=== PATIENT | female | born 1990 | race Caucasian/White ===

== ENCOUNTER → 2021-04-23 16:22 | Outpatient (BNVA) | payer MEDICAID, SELFPAY | PROVIDERS: Visit Provider Registered Nurse Neonatal Intensive Care | DX: Z20.822 Contact with and (suspected) exposure to COVID-19 (principal) | CPT/HCPCS: 87635 ==

== ENCOUNTER → 2023-10-03 13:35 | Outpatient (BNVA) | payer BC, MEDICAID, SELFPAY | PROVIDERS: Visit Provider Nurse Practitioner | DX: J02.9 Acute pharyngitis, unspecified (principal) | CPT/HCPCS: 87880 ==

== ENCOUNTER 2025-04-13 17:53 | Emergency (ER) | payer BC, MEDICAID, SELFPAY ==
[2025-04-13 17:58] VITALS: BP 141/98; PULSE 76; RESP 14; TEMP 36.5; O2SAT 100
--- OUTSIDE RECORDS SUMMARY | 2025-04-13 18:01 | XMS_ITS | Patient Health Record ---
Author Organization [facility] Address [address] [place] [address] Care Team Providers Care [facility] Coder Name Role Phone Elmer Forman MD Primary Care Provider Grey Mejia Unavailable [phone] Allergies No Known Allergies Reason For Referral No Information Medications Medication SIG (Take, Route, Frequency, Duration) Notes Start Date End Date Status Advair Diskus 100-50 MCG/DOSE 1 puff Inhalation two times daily Active Linzess 145 MCG 1 Capsule Oral every other day 12/06/2012 Active SEROquel 300 MG Oral at bedtime Active LaMICtal 200 MG 1 Oral daily A ctive Singulair 10 MG 1 (one) Oral Daily 07/01/2006 Active Flonase 50 MCG/DOSE 2 sprays Nasal each nostril daily *please review for potential _update for e-prescription and drug interaction check* Active Medications Reconciled *please review for potential _update for e-prescription and drug interaction check* Active Loratadine 10 MG Oral daily Ac tive Levothyroxine Sodium 50 MCG 1 Oral daily Active Immunizations Vaccine Route Administration Date Status Comme nts Influenza, seasonal, injectable (split), for 3 yrs and up OTH Other/Miscellaneous 04/19/2005 Administered Influenza, seasonal, injectable (split), for 3 yrs and up OTH Other/Miscellaneous 04/26/2006 Administered Influenza, seasonal, injectable (split), for 3 yrs and up OTH Other/Miscellaneous 04/05/2008 Pending Problems Problem Type SNOMED Code ICD Code Onset Dates Problem Status W/U Status Risk Notes Problem Allergic rhinitis caused by pollen (disorder) (14221433) Allergic rhinitis due to pollen (J30.1) Inactive confirmed Problem Chronic rhinitis (62347757) Chronic rhinitis (J31.0) Inactive confirmed Problem Chronic ethmoidal sinusitis (10103402) Chronic ethmoidal sinusitis (J32.2) Inactive confirmed Problem Cough (93621884) Cough (R05) Inactive confirmed Comment:Order faxed for [facility] drive thru testing for COVID-19. Will notify patient of results as they become available. Discussed with patient the importance of self quarantine at home until notified of results. Push fluids and rest. Over the counter treatment options and suggestions for symptom reduction provided. Should f/u if test is negative but symptoms do not improve/worsen . Discussed s/s of worsening condition and need for follow up, including emergency care if acute worsening should occur. Recommend patient call ahead when possible to notify services that he/she has been tested for COVID-19. Pt indicates understanding. , Problem Syncope and collapse (713220106) Syncope and collapse (R55) Inactive confirmed Problem Contusion of left forearm (3276199435300404 7) Contusion of left forearm, initial encounter (S50.12XA) Inactive confirmed Problem Counseling (902464058) ENCOUNTER FOR EDUCATION (Z71.9) Inactive confirmed Problem Shoulder joint pain (094331369) PAIN IN JOINT OF LEFT SHOULDER (M25.512) Inactive confirmed Problem Optic neuritis (42007262) OPTIC NEURITIS, RIGHT (H46.9) Inactive confirmed Comment:histor y of, Problem Body mass index 20-24 - normal (775444412) BODY MASS INDEX (BMI) OF 20.0-20.9 IN ADULT (Z68.20) Inactive confirmed Problem Abdominal pain (34767688) ABDOMINAL PAIN (R10.9) Inactive confirmed Comment:improv ed if moves her bowels, Problem Essential tremor (433435012) ESSENTIAL AND OTHER SPECIFIED FORMS OF TREMOR (G25.0) Inactive confirmed Problem 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, 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) Inactive confirmed Problem Deficiency anemias (726205480) ANEMIA, DEFICIENCY (D53.9) Inactive confirmed Comment:she is reporting heavy periods and has had labs showing mild iron deficiency she has had EGD/Colonoscop y, Problem Acute pharyngitis (898980132) PHARYNGITIS, ACUTE (J02.9) Inactive confirmed Problem STOMATITIS AND MUCOSITIS (K12.1) Inactive confirmed Problem Tenderness of right upper quadrant of abdomen (736582598) ABDOMINAL TENDERNESS, RUQ (RIGHT UPPER QUADRANT) (R10.811) Inactive confirmed Problem Syncope and collapse (495704684) SYNCOPE, UNSPECIFIED SYNCOPE TYPE (R55) Inactive confirmed Problem Gastroesophageal reflux disease (000361112) GERD (GASTROESOPHAGEA L REFLUX DISEASE) (K21.9) Inactive confirmed Comment:manuel Hurtado; handout provided to the patient,Story: diet and lifestyle modifications at this time, Problem Functional bowel disease (15543575) FUNCTIONAL BOWEL DISEASE (K58.9) Inactive confirmed Description: IR RITABLE BOWEL SYNDROME Problem ADHD - Attention deficit disorder with hyperactivity (628458939) ATTENTION DEFICIT DISORDER WITH HYPERACTIVITY (F90.9) Inactive confirmed Problem Asthma without status asthmaticus (24293948) ASTHMA WITHOUT STATUS ASTHMATICUS (J45.909) Inactive confirmed Problem Traumatic rotator cuff tear (309313914) TRAUMATIC ROTATOR CUFF TEAR (S46.019A) Inactive confirmed Problem Hemorrhage of rectum and anus (600938939) WV (BLEEDING PER RECTUM) (569.3) (569.3) Inactive confirmed Comment:does have external hemorrhoids on exam; large; however concern is the clotting seen will perform colonoscopy as above, Problem FOREARM DEFORMITY, LEFT (M21.932) Inactive confirmed Comment:Acute with pain, Problem Hemorrhoid (01436264) HEMORRHOID (K64.9) Inactive confirmed Description:HE MORRHOIDS Problem Partial seizure (98410144) PARTIAL SEIZURE DISORDER (G40.109) Inactive confirmed Problem Candidiasis of the esophagus (29840022) THRUSH OF MOUTH AND ESOPHAGUS (112.84) (112.84) Inactive confirmed Problem Surveillance of oral contraception done (situation) (277111634374529) ENCOUNTER FOR SURVEILLANCE OF CONTRACEPTIVE DRUG (Z30.40) Inactive confirmed Problem Bicipital tenosynovitis (43999496) BICEPS TENDONITIS (M75.20) Inactive confirmed Problem Constipation (58496575) CN (CONSTIPATION) (K59.00) Inactive confirmed Comment:improv ed on Amitzia BID needs to ensure do Tuesday clean out,Descriptio n:CONSTIPATION Problem Epigastric pain (21716552) ABDOMINAL PAIN, EPIGASTRIC (R10.13) Inactive confirmed Comment:06/2016 : Patient having reucrrent epigastric/RUQ pain more dyspepsia or spasam she has long standing GI issues she is on linzess from her PCP and would continue at least every other day gave handout and education on Low FODMAP diet, Problem Chronic antritis (83711662) ANTRITIS CHRONIC (J32.0) Inactive confirmed Description:CH RONIC MAXILLARY SINUSITIS Problem Erosive gastritis (9664251040585232 ) GASTRITIS, EROSIVE (K29.60) Inactive confirmed Problem Influenza immunization (99787557) NEED FOR PROPHYLACTIC VACCINATION AND INOCULATION AGAINST INFLUENZA (Z23) Inactive confirmed Description: [place] OPHYLACTIC VACCINATION AGAINST INFLUENZA (V04.81) Problem Migraine variant with headache (disorder) (622716646) MIGRAINE HEADACHE (G43.909) Inactive confirmed Problem Weakness of both lower extremities (244482433746325) WEAKNESS OF BOTH LOWER EXTREMITIES (R29.898) Inactive confirmed Problem ABNRM RESULT, FUNCTION STUDY, ENDOCRINE NEC (794.6) (794.6) Inactive confirmed Problem Subacromial impingement (209100958) SUBACROMIAL IMPINGEMENT (M75.40) Inactive confirmed Problem Acute tonsillitis (07002604) ACUTE TONSILLITIS (J03.90) Inactive confirmed Problem Verruca vulgaris (07288184) VIRAL WARTS (B07.9) Inactive confirmed Problem Anxiety disorder (924033421) ANXIETY DISORDER (F41.9) Inactive confirmed Problem Hypermetropia (93629308) 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) Inactive confirmed Problem Major depressive disorder (826462146) MAJOR DEPRESSIVE DISORDER (F32.9) Inactive confirmed Problem Ataxia (40953542) ATAXIA (R27.0) Inactive confir med Problem PRESENCE OF OTHER CARDIAC IMPLANTS AND GRAFTS (Z95.818) (Z95.818) Inactive confirmed Story:05/27 [employer] - LINQ - monthly, Problem Nausea and vomiting (05743717) NAUSEA WITH VOMITING (R11.2) Inactive confirmed Problem Contact hand eczema (258450068) DERMATITIS, CONTACT & OTHER ECZEMA, UNSPECIFIED CAUSE (692.9) (692.9) Problem resolved confirmed Problem Viral gastroenteritis (016835221) VIRAL GASTROENTERITIS (A08.4) Problem resolved confirmed Problem Right lower quadrant pain (614967170) ABDOMINAL PAIN, RIGHT LOWER QUADRANT (789.03) (789.03) Problem resolved confirmed Problem Concussion with no loss of consciousness (28240299) CONCUSSION WITH NO LOSS OF CONSCIOUSNESS (850.0) (850.0) Problem resolved confirmed Problem Pelvic and perineal pain (866130206) PAIN, FEMALE PELVIC (R10.2) Problem resolved confirmed Problem PAIN, PELVIC (FEMALE) (625.8) (625.8) Problem resolved confirmed Problem Viral enteritis (21347473) GASTROENTERITIS/ VIRAL NEC (008.8) (008.8) Problem resolved confirmed Problem Concussion with no loss of consciousness (44901717) CONCUSSION WITH NO LOSS OF CONSCIOUSNESS (S06.0X0A) Problem resolved confirmed Problem Contact dermatitis (32953633) CONTACT DERMATITIS AND OTHER ECZEMA (L25.9) Problem resolved confirmed Problem Right lower quadrant pain (523630130) RIGHT LOWER QUADRANT ABDOMINAL PAIN (R10.31) Problem resolved confirmed Plan Of Treatment No Information Insurance Providers Payer Name Payer Address Payer Phone Subscriber Number Group Number Insured Name Patient Relationship to Insured Coverage Start Date Coverage End Date [facility] MEDICAID COMMUNITY PLAN [address] [place] [phone] [id number] JAN GARCIA Other Medical (General) History Medical History History ICD Code Problems: ABNRM RESULT, FUNC TION STUDY, ENDOCRINE NEC (794.6), ProblemStatus: Active, ANTRITIS CHRONIC, DESCRIPTIO N: CHRONIC MAXILLARY SINUSITIS, ProblemStatus: Active, ANXIETY DISORDER, ProblemStatus: Active, Arm Pain, COMMENTS: FRACTURE ; LEFT; [facility]RA[facility] 05-11-16; DOI 05-10-16, ProblemStatus: Active, Asthma, ProblemStatus: Active, ASTHMA WITHOUT STATUS ASTHMATICUS, Probl emStatus: Active, ATAXIA, ProblemStatus: Active, ATTENTION DEFICIT DISORDER WITH HYPERACT IVITY, ProblemStatus: Active, CHRONIC ETHMOIDAL SINUSITIS, ProblemStat us: Active, CHRONIC RHINITIS, ProblemStatus: Active, Depression, ProblemStatus: Active, ESSENTIAL AND OTHER SPECIFIED FORMS OF T REMOR, ProblemStatus: Active, FUNCTIONAL BOWEL DISEASE, DE SCRIPTION: IRRITABLE BOWEL SYNDROME, ProblemStatus: Active, GASTRITIS, EROSIVE, ProblemStatus: Activ e, GERD (GASTROESOPHAGEAL REFLU X DISEASE), COMMENTS: diet and lifestyle modifications at this time, ProblemStatus: Active, MAJOR DEPRESSIVE DISORDER, ProblemStatus : Active, PARTIAL SEIZURE DISORDER, ProblemStatus: Active, PRESENCE OF OTHER CARDIAC IM PLANTS AND GRAFTS (Z95.818), COMMENTS: 05/27 [employer] - LINQ - monthly, ProblemStatus: Active, SYNCOPE, UNSPECIFIED SYNCOPE TYPE, Probl emStatus: Active, THRUSH OF MOUTH AND ESOPHAGUS (112.84), ProblemStatus: Active, Surgical History Surgery Date(Month/Year) Tonsillectomy, COMMENTS: 2010, ProblemSt atus: Active, Sinus Surgery, COMMENTS: 2004, ProblemSt atus: Active, LINQ - Device - Cardiac Eryn tor, COMMENTS: Lisset, ProblemStatus: Active, 2015-05-13 Hip Surgery, ProblemStatus: Active, 2011 Hernia Repair, ProblemStatus: Active, Foot Surgery - Right, COMMEN TS: TENDION REPAIR/2009x2, ProblemStatus: Active, ESS/Septo 2004 Dr. Kuo, ProblemStatus: Active, EGD, COMMENTS: 2006, ProblemStatus: Acti ve, Breast Cancer Lump Removal - Right, Prob lemStatus: Active, Adenoidectomy, ProblemStatus: Active,
[2025-04-13] MEDS: tetanus-dipt-pertussis 0.5 mL SDV IM (18:37)
--- NOTE | 2025-04-13 19:13 | W.ED.WOUNDLC ---
HPI - Wound/Laceration General: Chief Complaint: Wound/Laceration Stated Complaint: L hand Pinkey cut Time Seen by Provider: 04/13/25 18:06 History of Present Illness: Patient is a pleasant 34-year-old female that was at the trunk or treat tonight at [facility] with her twin sons, one that is in a wheelchair, that she had zip ties for his costume/wheelchair with a racecar. She was cutting a zip tie off, and cut the dorsum of her mid finger just below PIP. This occurred just prior to arrival. Her tetanus was not up-to-date. She has full function to her fingers. Her sensory is intact. Associated symptoms: Denies chills, fever(s), nausea or vomiting Related Data Home Medications ?Medication ?Instructions ?Recorded ?Confirmed lamotrigine 200 mg tablet 200 mg PO DAILY 04/23/21 10/03/23 (Lamictal) levothyroxine 50 mcg capsule 50 mcg PO DAILY 04/23/21 10/03/23 montelukast 10 mg tablet 10 mg PO DAILY 04/23/21 10/03/23 (Singulair) quetiapine 300 mg tablet (Seroquel) 300 mg PO DAILY 04/23/21 10/03/23 Previous Rx's ?Medication ?Instructions ?Recorded cephalexin 500 mg capsule 500 mg PO BID 10 days #20 caps 10/03/23 cephalexin 500 mg capsule 500 mg PO BID 3 days #6 caps 04/13/25 Allergies Allergy/AdvReac Type Severity Reaction Status Date / Time amoxicillin Allergy rash Verified 04/13/25 18:02 erythromycin base Allergy swelling Verified 04/13/25 18:02 hydrocodone Allergy rash Verified 04/13/25 18:02 meperidine (From Demerol) Allergy hallucinati Verified 04/13/25 18:02 ons morphine Allergy rash Verified 04/13/25 18:02 Review of Systems General: Reports: 10 or more systems reviewed and unremarkable except in HPI and below Const: Denies: fever(s) or chills Card: Denies: chest pain or palpitations Resp: Denies: dyspnea or productive cough GI: Denies: abdominal pain, nausea or vomiting Musc: Reports: joint pain, joint redness and limited range of motion; Denies: neck pain or back pain Skin/Breast: Denies: rash Neuro: Denies: headache(s), numbness in extremities or sensory changes Psych: Denies: difficulty concentrating Physical Exam Const: COMMON NORMALS: patient oriented x3 GENERAL APPEARANCE: cooperative HENMT: COMMON NORMALS: external ears normal, EAC's normal, TM's normal bilaterally and Normal external nose present NOSE: Normal external nose present and Normal nares present EXTERNAL EAR: Yes external ears normal EXTERNAL AUDITORY CANAL: EAC's normal TYMPANIC MEMBRANE: TM's normal bilaterally THROAT: posterior oropharynx abnormal edema and erythema Eye: COMMON NORMALS: EOMs intact bilaterally Lymph: LYMPHATIC: no lymphadenopathy noted Resp: COMMON NORMALS: normal respiratory effort and clear to auscultation bilaterally EFFORT & INSPECTION: Yes able to speak in complete sentences, Yes symmetric chest movement, No Actively coughing and No audible wheezes AUSCULTATION: clear to auscultation bilaterally Cardio: COMMON NORMALS: regular rate and regular rhythm RATE: regular rate RHYTHM: regular rhythm GI: COMMON NORMALS: Normal to inspection, nondistended, normoactive bowel sounds present and Soft to palpation AUSCULTATION: Yes normoactive bowel sounds PALPATION: Yes Soft to palpation Extremity: EXTREMITY IMAGE (BACK):  1. 4 cm laceration Neuro: COMMON NORMALS: patient oriented x3 SPEECH: speech normal GAIT: Yes Normal gait present Psych: COMMON NORMALS: cooperative and speech normal SPEECH: Yes normal speech Skin: RASHES: no rashes Procedures Laceration Laceration 1: Site: hand (left 5th dorsum of finger) Side (If applicable): left Size (cm): 4 Description: linear Depth: simple, single layer Local Anesthetic: lidocaine 1% Amount of anesthesia used (mL): 4 Pre-repair: wound explored, irrigated extensively and deep structures intact Skin layer closed with: nylon Size (cm): 4-0 Number of sutures: 4 Technique: simple, interrupted Course Vital Signs: Vital signs: Vital Signs Temperature 97.7 F 04/13/25 17:58 Pulse Rate 76 04/13/25 17:58 Respiratory Rate 14 04/13/25 17:58 Blood Pressure 141/98 04/13/25 17:58 Pulse Oximetry 100 04/13/25 17:58 Oxygen Delivery Me thod Room Air 04/13/25 17:58 MDM - Wound/Laceration Medical Decision Making Patient is a pleasant 34-year-old female with a laceration to her left dorsum of her hand. This was 4 cm long, and required 4 sutures. Tendon evaluation was intact. She tolerated this well without issues. Full finger block was obtained with 4 mL lidocaine. The finger was generously washed with sterile water. No foreign body was found. The area was then prepped with Betadine, and sutured x 4. Discussed with patient that even though her tendon examination was intact, if she has further issues, she would have to see a hand surgeon, however for suturing the wound is appropriate at this time. Medical Records I reviewed the patient's medical records. Lab Data I reviewed the patient's lab results. XR interpretation done by ED provider, pending radiology final review Discharge Plan Discharge Patient Disposition: Home Clinical Impression: Laceration of finger of left hand Qualifiers: Encounter type: initial encounter Finger: little finger Damage to nail status: without damage Foreign body presence: without foreign body Qualified Code(s): S61.217A - Laceration without foreign body of left little finger without damage to nail, initial encounter Condition: Stable Prescriptions: New cephalexin 500 mg capsule 500 mg PO BID 3 Days Qty: 6 0RF No Action quetiapine [Seroquel] 300 mg tablet 300 mg PO DAILY montelukast [Singulair] 10 mg tablet 10 mg PO DAILY levothyroxine 50 mcg capsule 50 mcg PO DAILY lamotrigine [Lamictal] 200 mg tablet 200 mg PO DAILY cephalexin 500 mg capsule 500 mg PO BID 10 Days Qty: 20 0RF Discharge Orders: Discharge ED (Routine); Ordered 04/13/25 Ordered By: Penelope Kolb Discharge Diet: Usual diet Discharge Activity: Resume usual activity Patient Instructions: Laceration (ED), Patient Portal & Thelma Instructions Activity Restrictions/Additional Instructions: - Laceration care: Remove in 10 days. You may use antibiotic ointment the first 24 hours then just Vaseline to avoid corrosion to the skin. Wash this area daily. You may cover it, however make sure you uncover at least daily to wash. If there is redness outside of the laceration area, or drainage, or fever greater to 100.4 ?F, return back to the ED. Prophylactic antibiotics have been sent to the pharmacy. Obtain in the morning and start in the morning. Utilize active culture yogurt or put daily probiotic to avoid infectious diarrhea You may return here or to your primary care for your suture removal in 10 days. Call on Tuesday for appointment if you are returning to your primary care. Thank you for choosing [facility] for your healthcare needs today. You have been screened and evaluated and felt safe for discharge. Health conditions do change or evolve sometimes and as such it is important that you follow up with your Primary Doctor to be re checked, 3-5 days is a general good time frame for follow up. You are always welcome to return to the ED for re assessment if your symptoms are worsening or you have new concerns Print Language: Czech Coding Level of Care Code ED Supervisor [employer] for [facility]
== END 2025-04-13 19:28 | disposition home or self-care (01) ==
PROVIDERS: Emergency Provider Physician Assistant
DX: S61.217A Laceration without foreign body of left little finger without damage to nail, initial encounter (principal); W26.9XXA Contact with unspecified sharp object(s), initial encounter
CPT/HCPCS: 12002; 90471; 90715; 99283; J9999